=== PATIENT | male | born 1980 | race Caucasian/White ===

== ENCOUNTER 2017-05-28 11:55 | Emergency (ER) | payer OTHER ==
[2017-05-28 12:01] VITALS: RESP 16
--- NOTE | 2017-05-28 13:14 | EDPHY ---
General Narrative: CHIEF COMPLAINT: Left knee pain HISTORY OF PRESENT ILLNESS: Patient complains of left knee pain this started this morning. He was bent on the ground on his knee when it started. He felt a pop. Difficulty straightening the knee. No direct blows or trauma. No numbness or tingling. Moderate to severe. No radiating pain. No numbness or tingling. No weakness. Previous soft tissue injuries in the past without MRI or definitive surgical intervention. Play soccer frequently. No other associated complaints or modifying factors ESTABLISHED ORTHOPEDIST: None REVIEW OF SYSTEMS: Ten systems reviewed and are negative unless otherwise noted in the HPI PAST MEDICAL HISTORY: Orthopedic injuries PAST SURGICAL HISTORY: None SOCIAL HISTORY: Nonsmoker. Works for [employer]. Originally from [facility] FAMILY HISTORY: Noncontributory EXAMINATION General Appearance: Alert, no distress Cardiovascular: Symmetric DP and PT pulses 2+. Brisk cap refill Neurological: A&O, it sensation to the dorsum of the foot symmetric. No footdrop. strength symmetric Skin: Warm and dry, no rash. No petechiae or purpura Extremities: Tenderness on the medial compartment of the left knee. No crepitus or deformity. Negative Kelsea. Negative drawer. Unable to successfully perform Heidi test due to pain. Psychiatric: Mood and affect normal DIFFERENTIAL DIAGNOSES: Including but not limited to sprain, strain, meniscal injury, MCL injury, loose body MDM: 12:29 p.m. Acute left knee pain in a bent position. Suspect soft tissue injury without fracture. I have ordered an x-ray. He is in no acute distress. 1:15 p.m. X-rays negative for acute findings. There are early degenerative changes noted. Suspected this is likely medial meniscal injury. I discussed with the patient and re-evaluated at this time. Patient is in no acute distress and neurovascular intact. I will place him in a knee immobilizer short course therapy and provided crutches. He will be provided the on-call orthopedic information for them to follow up with outpatient. We discussed ED precautions. We discussed 2 early by mouth twice daily. We discussed ice and elevation. He is comfortable this plan and discharged home stable condition. SUPERVISION: This patient was independently evaluated without direct involvement of or examination by the attending physician. ED Precautions: Worsening pain. Erythema, edema, cyanosis, pallor, paresthesia or anesthesia. - History Smoking Status: Never smoked - Objective Vital Signs: Initial Vital Signs Temperature (C) 97.9 F 05/28/17 11:57 Heart Rate 66 05/28/17 11:57 Respiratory Rate 16 05/28/17 11:57 Blood Pressure 147/86 H 05/28/17 11:57 O2 Sat (%) 97 05/28/17 11:57 O2 Delivery Mode Room Air Allergies/Adverse Reactions: No Known Allergies Allergy (Unverified 05/28/17 11:57) Home Medications: Medication Instructions Recorded NK [No Known Home Meds] 05/28/17 Departure - Departure Disposition: Home, Routine, Self-Care Clinical Impression: Left knee sprain Qualifiers: Encounter type: initial encounter Involved ligament of knee: unspecified ligament Qualified Code(s): S83.92XA - Sprain of unspecified site of left knee, initial encounter Condition: Good Instructions: Knee Sprain (ED) Additional Instructions: 1. Ice, compression elevation as needed 2. Aleve, 2 pills by mouth twice daily for 7-10 days 3. Contact the on-call orthopedic surgeon as provided Referrals: Reji Tamez MD [Medical Doctor] - As per Instructions
[2017-05-28 13:47] VITALS: BP 149/95; PULSE 74; TEMP 98.1; O2SAT 96
== END 2017-05-28 13:47 | disposition home or self-care (01) ==
DX: S83.92XA Sprain of unspecified site of left knee, initial encounter (principal); X58.XXXA Exposure to other specified factors, initial encounter
CPT/HCPCS: L1830